=== PATIENT | male | born 1990 | race Caucasian/White ===

== ENCOUNTER 2022-01-15 02:55 | Emergency (ER) | payer OTHER ==
[~2022-01-15] VITALS: Ht 182.9 cm; Wt 95.0 kg
[2022-01-15 04:12] VITALS: BP 113/57
[2022-01-15] MEDS ORDERED: EPIN0.3P3 IM (04:25)
== END 2022-01-15 04:48 | disposition home or self-care (01) ==
LOC: ER 02:55
DX: T78.40XA Allergy, unspecified, initial encounter (principal); Z88.0 Allergy status to penicillin; X58.XXXA Exposure to other specified factors, initial encounter
CPT/HCPCS: 99282